=== PATIENT | female | born 1990 | race Two or more races ===

== ENCOUNTER → 2017-05-03 | Emergency (ER) | payer MEDICAID ==
[~2017-05-03] VITALS: Ht 157.5 cm; Wt 116.0 kg
[~2017-05-03] MED LIST: ketorolac trometh. 30mg/ml inj. IV ONE
[2017-05-03 15:24] LABS: BASOPHILS # (AUTO) 0.1 X10'3 (0-0.2); BASOPHILS % (AUTO) 0.9 % (0-1); EOSINOPHILS # (AUTO) 0.2 X10'3 (0-0.9); EOSINOPHILS % (AUTO) 1.7 % (0-6); HEMATOCRIT 38.8 % (35.0-45.0); HEMOGLOBIN 13.3 g/dl (12.0-16.0); LYMPHOCYTES # (AUTO) 3.7 X10'3 (1.1-4.8); LYMPHOCYTES % (AUTO) 31.6 % (21-51); MEAN CORPUSCULAR HEMOGLOBIN 27.6 PG (27.0-31.0); MEAN CORPUSCULAR HGB CONC 34.3 % (33.0-36.5); MEAN CORPUSCULAR VOLUME 80.4 FL (78-98); MEAN PLATELET VOLUME 8.5 FL (7.4-10.4); MONOCYTES # (AUTO) 0.7 X10'3 (0-0.9); MONOCYTES % (AUTO) 5.8 % (2-12); PLATELET COUNT 311 X10'3 (140-440); RED BLOOD COUNT 4.83 X10'6 (4.20-5.60); RED CELL DISTRIBUTION WIDTH 13.2 % (11.5-14.5); WHITE BLOOD COUNT 11.7 X10'3 (4.5-11.0)
[2017-05-03 15:33] LABS: PARTIAL THROMBOPLASTIN TIME 28 SECONDS (22-32)
[2017-05-03 15:39] LABS: ALANINE AMINOTRANSFERASE 26 U/L (12-78); ALBUMIN 3.6 G/DL (3.4-5.0); ALBUMIN/GLOBULIN RATIO 0.8 (1.1-1.5); ALKALINE PHOSPHATASE 81 IU/L (46-116); ANION GAP 9 (8-16); ASPARTATE AMINO TRANSFERASE 15 U/L (10-37); BILIRUBIN,TOTAL 0.9 MG/DL (0.1-1.0); BLOOD UREA NITROGEN 13 MG/DL (7-18); BUN/CREATININE RATIO 13.1 (6.6-38.0); CHLORIDE 105 MMOL/L (99-107); CREATININE 0.99 MG/DL (0.40-0.90); GLUCOSE 91 MG/DL (70-104); POTASSIUM 3.9 MMOL/L (3.5-5.1); SODIUM 140 MMOL/L (135-145); TOTAL CARBON DIOXIDE 25.6 MMOL/L (24-32); TOTAL PROTEIN 7.9 G/DL (6.4-8.2); eGFR 67 ML/MIN
[2017-05-03 16:51] LABS: D-DIMER 0.36 MG/L FEU (0-0.50)
[2017-05-03 17:19] VITALS: BP 128/65
== END | disposition home or self-care (01) ==
LOC: ER 15:04
DX: R07.9 Chest pain, unspecified (principal); E78.00 Pure hypercholesterolemia, unspecified; E03.9 Hypothyroidism, unspecified
CPT/HCPCS: 36415; 71045; 80053; 85025; 85379; 85610; 85730; 93005; 96374; 99285; J1885; 84484

== ENCOUNTER 2020-06-10 04:21 | Emergency (ER) | payer MEDICAID ==
[~2020-06-10] VITALS: Ht 157.5 cm; Wt 127.3 kg
[2020-06-10 04:58] LABS: BASOPHILS # (AUTO) 0.1 X10'3 (0-0.2); BASOPHILS % (AUTO) 0.8 % (0-1); EOSINOPHILS # (AUTO) 0.2 X10'3 (0-0.9); EOSINOPHILS % (AUTO) 1.7 % (0-6); HEMATOCRIT 36.7 % (35.0-45.0); HEMOGLOBIN 12.6 g/dl (12.0-16.0); LYMPHOCYTES % (AUTO) 39.3 % (21-51); MEAN CORPUSCULAR HEMOGLOBIN 28.2 PG (27.0-31.0); MEAN CORPUSCULAR HGB CONC 34.3 g/dL (33.0-36.5); MEAN CORPUSCULAR VOLUME 82.2 FL (78-98); MEAN PLATELET VOLUME 8.4 FL (7.4-10.4); MONOCYTES # (AUTO) 0.9 X10'3 (0-0.9); MONOCYTES % (AUTO) 7.5 % (2-12); NEUTROPHILS # (AUTO) 6.4 X10'3 (1.8-7.7); NEUTROPHILS % (AUTO) 50.7 % (42-75); PLATELET COUNT 337 X10'3 (140-440); RED BLOOD COUNT 4.46 X10'6 (4.20-5.60); RED CELL DISTRIBUTION WIDTH 13.3 % (11.5-14.5); WHITE BLOOD COUNT 12.7 X10'3 (4.5-11.0)
[2020-06-10 05:13] LABS: ALANINE AMINOTRANSFERASE 21 U/L (12-78); ALBUMIN 3.4 G/DL (3.4-5.0); ALBUMIN/GLOBULIN RATIO 0.8 (1.1-1.5); ALKALINE PHOSPHATASE 69 IU/L (46-116); ANION GAP 9 (8-16); ASPARTATE AMINO TRANSFERASE 16 U/L (10-37); BILIRUBIN,TOTAL 0.5 MG/DL (0.1-1.0); BLOOD UREA NITROGEN 17 MG/DL (7-18); BUN/CREATININE RATIO 18.7 (6.6-38.0); CALCIUM 8.7 MG/DL (8.5-10.1); CHLORIDE 104 MMOL/L (99-107); CREATININE 0.91 MG/DL (0.40-0.90); GLUCOSE 99 MG/DL (70-104); SODIUM 140 MMOL/L (135-145); TOTAL CARBON DIOXIDE 26.6 MMOL/L (24-32); TOTAL PROTEIN 7.5 G/DL (6.4-8.2); eGFR 73 ML/MIN
[2020-06-10] MEDS ORDERED: acetaminophen 325mg tablet PO ONE (07:45)
[2020-06-10] MEDS ORDERED: ketorolac trometh inj. 60 MG/2 ML VIAL IM ONE (07:45)
[2020-06-10] MEDS ORDERED: ketorolac trometh. 30mg/ml inj. IM ONE (07:50)
[2020-06-10 09:22] VITALS: BP 130/72
== END 2020-06-10 09:24 | disposition home or self-care (01) ==
LOC: ER 04:21
DX: R07.89 Other chest pain (principal); E78.00 Pure hypercholesterolemia, unspecified; E03.9 Hypothyroidism, unspecified; F41.9 Anxiety disorder, unspecified; F32.9 Major depressive disorder, single episode, unspecified; Z90.89 Acquired absence of other organs; Z72.89 Other problems related to lifestyle
CPT/HCPCS: 36415; 71045; 80053; 83880; 84484; 85025; 93005; 96372; 99285; J1885

== ENCOUNTER 2022-03-28 07:22 | Emergency (ER) | payer MEDICAID ==
[~2022-03-28] VITALS: Ht 157.5 cm; Wt 132.0 kg
--- NOTE | 2022-03-28 07:54 | NUR ---
Dr Bacon aware of patient's severe pain at this time. No new orders.
[2022-03-28] MEDS ORDERED: ketorolac tromethamine 15mg/ml inj. IV ONE (08:00)
[2022-03-28] MEDS ORDERED: normal saline 1000ML IV soln IVB ONE (08:00)
[2022-03-28 08:05] LABS: BASOPHILS # (AUTO) 0.1 X10'3 (0-0.2); BASOPHILS % (AUTO) 0.7 % (0-1); EOSINOPHILS # (AUTO) 0.2 X10'3 (0-0.9); EOSINOPHILS % (AUTO) 1.5 % (0-6); HEMATOCRIT 38.4 % (35.0-45.0); HEMOGLOBIN 12.9 g/dl (12.0-16.0); LYMPHOCYTES # (AUTO) 4.4 X10'3 (1.1-4.8); LYMPHOCYTES % (AUTO) 31.9 % (21-51); MEAN CORPUSCULAR HEMOGLOBIN 27.2 PG (27.0-31.0); MEAN CORPUSCULAR HGB CONC 33.5 g/dL (33.0-36.5); MEAN CORPUSCULAR VOLUME 81.1 FL (78-98); MEAN PLATELET VOLUME 8.7 FL (7.4-10.4); MONOCYTES % (AUTO) 6.9 % (2-12); NEUTROPHILS # (AUTO) 8.2 X10'3 (1.8-7.7); PLATELET COUNT 330 X10'3 (140-440); RED BLOOD COUNT 4.74 X10'6 (4.20-5.60); RED CELL DISTRIBUTION WIDTH 13.5 % (11.5-14.5); WHITE BLOOD COUNT 13.9 X10'3 (4.5-11.0)
[2022-03-28 08:21] LABS: ALANINE AMINOTRANSFERASE 24 U/L (12-78); ALBUMIN 3.9 G/DL (3.4-5.0); ALKALINE PHOSPHATASE 68 IU/L (46-116); AMYLASE 41 U/L (25-115); ANION GAP 13 (8-16); ASPARTATE AMINO TRANSFERASE 18 U/L (10-37); BILIRUBIN,TOTAL 0.8 MG/DL (0.1-1.0); BLOOD UREA NITROGEN 9 MG/DL (7-18); BUN/CREATININE RATIO 9.9 (6.6-38.0); CALCIUM 8.9 MG/DL (8.5-10.1); CHLORIDE 102 MMOL/L (99-107); CREATININE 0.91 MG/DL (0.40-0.90); GLUCOSE 95 MG/DL (70-104); HCG SERUM QL NEGATIVE; LIPASE < 50 U/L (73-393); POTASSIUM 3.6 MMOL/L (3.5-5.1); SODIUM 140 MMOL/L (135-145); TOTAL CARBON DIOXIDE 25.2 MMOL/L (24-32); TOTAL PROTEIN 7.9 G/DL (6.4-8.2); eGFR 72 ML/MIN
[2022-03-28] MEDS ORDERED: iohexol 300mg/ml 100ml inj. ONE (08:35)
[2022-03-28 09:28] LABS: CLARITY,URINE SLIGHTLY CLOUDY (Clear); COLOR,URINE YELLOW (Yellow); GLUCOSE, URINE NEGATIVE (Neg); KETONES,URINE NEGATIVE (Neg); LEUKOCYTE ESTERASE ,URINE NEGATIVE (Neg); NITRITES, URINE NEGATIVE (Neg); OCCULT BLOOD,URINE NEGATIVE (Neg); PROTEIN,URINE NEGATIVE (Neg); UROBILINOGEN,URINE 0.2 E.U/dL (0.2-1.0)
[2022-03-28 09:34] LABS: MUCUS STRANDS NONE SEEN /LPF (Neg); SQUAMOUS EPITHELIAL CELL,UR MANY /LPF (FEW); UA COLLECTION TYPE VOIDED
[2022-03-28 09:36] LABS: BACTERIA,URINE 1+ /HPF (Neg); RBC,URINE 0-2 /HPF (0-2); WBC,URINE 0-4 /HPF (0-4)
[2022-03-28] MEDS: morphine 2 MG/ML inj. syringe IV PRN ×2 (10:39→12:53)
[2022-03-28] MEDS ORDERED: HYDROcodone/acetaminophen 10/325mg tab PO ONE (12:50)
[2022-03-28 13:11] VITALS: BP 120/74
== END 2022-03-28 13:14 | disposition home or self-care (01) ==
LOC: ER 07:23
DX: K63.89 Other specified diseases of intestine (principal); D31.60 Benign neoplasm of unspecified site of unspecified orbit; E78.00 Pure hypercholesterolemia, unspecified; E03.9 Hypothyroidism, unspecified; F41.9 Anxiety disorder, unspecified; F32.9 Major depressive disorder, single episode, unspecified; Z90.49 Acquired absence of other specified parts of digestive tract; Z72.89 Other problems related to lifestyle; Z79.899 Other long term (current) drug therapy
CPT/HCPCS: 36415; 74177; 76856; 80053; 81001; 82150; 83690; 84703; 85025; 93976; 96361; 96374; 96375; 96376; 99285; J1885; J2270; J3490; J7030; Q9967

== ENCOUNTER 2022-05-27 23:57 | Emergency (ER) | payer MEDICAID ==
[~2022-05-27] VITALS: Ht 157.5 cm; Wt 141.4 kg
[2022-05-28] MEDS ORDERED: LORazepam 2 mg/ml vial IV ONE ×2 (00:10→07:45)
[2022-05-28] MEDS ORDERED: iohexol 350MG/ML 100ml bottle IV ONE (00:12)
[2022-05-28 00:41] LABS: ALANINE AMINOTRANSFERASE 22 U/L (12-78); ALBUMIN 3.6 G/DL (3.4-5.0); ALBUMIN/GLOBULIN RATIO 0.9 (1.1-1.5); ALKALINE PHOSPHATASE 67 IU/L (46-116); ANION GAP 10 (8-16); ASPARTATE AMINO TRANSFERASE 11 U/L (10-37); BILIRUBIN,TOTAL 0.4 MG/DL (0.1-1.0); BLOOD UREA NITROGEN 12 MG/DL (7-18); BUN/CREATININE RATIO 13.8 (10.0-20.0); CALCIUM 8.7 MG/DL (8.5-10.1); CHLORIDE 104 MMOL/L (99-107); CREATININE 0.87 MG/DL (0.40-0.90); ETHANOL 0.019 GM/DL (0.0-0.010); GLUCOSE 82 MG/DL (70-104); POTASSIUM 3.2 MMOL/L (3.5-5.1); SODIUM 140 MMOL/L (135-145); TOTAL CARBON DIOXIDE 25.8 MMOL/L (24-32); TOTAL PROTEIN 7.5 G/DL (6.4-8.2); eGFR 75 ML/MIN
[2022-05-28 00:52] LABS: BASOPHILS # (AUTO) 0.1 X10'3 (0-0.2); BASOPHILS % (AUTO) 0.5 % (0-1); EOSINOPHILS # (AUTO) 0.1 X10'3 (0-0.9); EOSINOPHILS % (AUTO) 0.9 % (0-6); HEMATOCRIT 37.3 % (35.0-45.0); HEMOGLOBIN 12.5 g/dl (12.0-16.0); LYMPHOCYTES # (AUTO) 4.1 X10'3 (1.1-4.8); LYMPHOCYTES % (AUTO) 31.7 % (21-51); MEAN CORPUSCULAR HEMOGLOBIN 27.2 PG (27.0-31.0); MEAN CORPUSCULAR HGB CONC 33.5 g/dL (33.0-36.5); MEAN PLATELET VOLUME 8.8 FL (7.4-10.4); MONOCYTES # (AUTO) 1.3 X10'3 (0-0.9); NEUTROPHILS # (AUTO) 7.4 X10'3 (1.8-7.7); NEUTROPHILS % (AUTO) 56.9 % (42-75); PLATELET COUNT 299 X10'3 (140-440); RED BLOOD COUNT 4.61 X10'6 (4.20-5.60); RED CELL DISTRIBUTION WIDTH 13.5 % (11.5-14.5)
--- NOTE | 2022-05-28 01:08 | NUR ---
CT negative per radiologist that called.
[2022-05-28 01:26] LABS: URINE AMPHETAMINE SCREEN NEGATIVE (Neg); URINE BARBITUATE SCREEN NEGATIVE (Neg); URINE BENZODIAZEPINES SCREEN NEGATIVE (Neg); URINE CANNABINOID SCREEN NEGATIVE (Neg); URINE COCAINE SCREEN NEGATIVE (Neg); URINE METHADONE SCREEN NEGATIVE (Neg); URINE OPIATE SCREEN NEGATIVE (Neg); URINE PHENCYCLIDINE SCREEN NEGATIVE (Neg)
[2022-05-28] MEDS ORDERED: normal saline 1000ML IV soln IVB ONE (02:15)
[2022-05-28 02:49] LABS: C-REACTIVE PROTEIN 0.81 MG/DL (0.0-0.5)
[2022-05-28] MEDS ORDERED: ketorolac trometh. 30mg/ml inj. IV ONE (02:50)
[2022-05-28] MEDS ORDERED: diphenhydrAMINE 50 mg/ml inj IV ONE (02:50)
[2022-05-28] MEDS ORDERED: meclizine 12.5mg tablet PO ONE (02:50)
[2022-05-28] MEDS ORDERED: diphenhydrAMINE 50 mg/ml inj IM ONE (07:05)
[2022-05-28] MEDS ORDERED: haloperidol decanoate***LONG-ACTING*** 100mg/ml **IM only** inj. IM ONE (07:05)
[2022-05-28] MEDS ORDERED: haloperidol lactate 5mg/ml inj IM ONE (07:20)
--- NOTE | 2022-05-28 07:39 | NUR ---
FAMILY AT BEDSIDE. PT DENIES NEEDS AT THIS TIME.
[2022-05-28] MEDS ORDERED: LORazepam 2 mg/ml vial ONE (07:45)
--- NOTE | 2022-05-28 07:52 | NUR ---
PT REPORTS SHE FEELS ANXIOUS AND RESTLESS - ALL VITALS WNL - PT GIVEN VERBAL COACHING FOR ANXIETY. MD AT BEDSIDE AND VERBAL ORDERS GIVEN FOR 1 MG ATIVAN. UPON RE-ENTERING THE ROOM TO ADMIN ATIVAN PT ALREADY DOING MUCH BETTER AND RESTING STILL ON GURNEY. MD FAMILY UPDATED ON PLAN OF CARE TO OBTAIN MRI AND PROCEED FROM THERE.
[2022-05-28 09:12] VITALS: BP 138/83
--- NOTE | 2022-05-28 09:12 | NUR ---
ASSUMED CARE FROM RN. PT RESTINF IN BED, ROD PULLER IN PLACE. AT BEDSIDE. INTRODUCED SELF AND ROLE. PT EDUCATED TO POC. PT IN AGREEMENT.
== END 2022-05-28 11:15 | disposition home or self-care (01) ==
LOC: ER 23:57
DX: R42 Dizziness and giddiness (principal); R51.9 Headache, unspecified; R11.10 Vomiting, unspecified; H53.143 Visual discomfort, bilateral; E80.0 Hereditary erythropoietic porphyria; E03.9 Hypothyroidism, unspecified; F31.9 Bipolar disorder, unspecified; Z90.49 Acquired absence of other specified parts of digestive tract
CPT/HCPCS: 36415; 70450; 70496; 70498; 80053; 80305; 80320; 85025; 85651; 86140; 96361; 96372; 96374; 96375; 96376; 99285; J1200; J1630; J1885; J2060; J3490; J7030; J8597; Q9967

== ENCOUNTER 2022-06-29 00:25 | Emergency (ER) | payer MEDICAID ==
[~2022-06-29] VITALS: Ht 152.4 cm; Wt 141.4 kg
[2022-06-29 00:30] VITALS: BP 160/106
[2022-06-29 01:09] LABS: BASOPHILS # (AUTO) 0.1 X10'3 (0-0.2); BASOPHILS % (AUTO) 0.7 % (0-1); EOSINOPHILS # (AUTO) 0.2 X10'3 (0-0.9); EOSINOPHILS % (AUTO) 1.7 % (0-6); HEMATOCRIT 35.1 % (35.0-45.0); HEMOGLOBIN 12.1 g/dl (12.0-16.0); LYMPHOCYTES # (AUTO) 3.6 X10'3 (1.1-4.8); LYMPHOCYTES % (AUTO) 29.9 % (21-51); MEAN CORPUSCULAR HEMOGLOBIN 27.4 PG (27.0-31.0); MEAN CORPUSCULAR HGB CONC 34.4 g/dL (33.0-36.5); MEAN CORPUSCULAR VOLUME 79.7 FL (78-98); MEAN PLATELET VOLUME 8.7 FL (7.4-10.4); MONOCYTES # (AUTO) 0.8 X10'3 (0-0.9); MONOCYTES % (AUTO) 6.4 % (2-12); NEUTROPHILS # (AUTO) 7.4 X10'3 (1.8-7.7); NEUTROPHILS % (AUTO) 61.3 % (42-75); PLATELET COUNT 291 X10'3 (140-440); RED BLOOD COUNT 4.41 X10'6 (4.20-5.60); RED CELL DISTRIBUTION WIDTH 13.4 % (11.5-14.5); WHITE BLOOD COUNT 12.1 X10'3 (4.5-11.0)
[2022-06-29 01:10] LABS: URINE HCG NEGATIVE (NEG)
[2022-06-29 01:22] LABS: CLARITY,URINE CLEAR (Clear); COLOR,URINE YELLOW (Yellow); GLUCOSE, URINE NEGATIVE (Neg); KETONES,URINE NEGATIVE (Neg); LEUKOCYTE ESTERASE ,URINE NEGATIVE (Neg); NITRITES, URINE NEGATIVE (Neg); OCCULT BLOOD,URINE NEGATIVE (Neg); PROTEIN,URINE NEGATIVE (Neg); UROBILINOGEN,URINE 0.2 E.U/dL (0.2-1.0)
[2022-06-29 01:23] LABS: UA COLLECTION TYPE CLN CATCH MIDSTREAM
[2022-06-29 01:25] LABS: ALANINE AMINOTRANSFERASE 19 U/L (12-78); ALBUMIN 3.6 G/DL (3.4-5.0); ALBUMIN/GLOBULIN RATIO 1.1 (1.1-1.5); ALKALINE PHOSPHATASE 77 IU/L (46-116); ANION GAP 8 (8-16); ASPARTATE AMINO TRANSFERASE 8 U/L (10-37); BILIRUBIN,TOTAL 0.4 MG/DL (0.1-1.0); BLOOD UREA NITROGEN 11 MG/DL (7-18); BUN/CREATININE RATIO 11.1 (10.0-20.0); CHLORIDE 105 MMOL/L (99-107); CREATININE 0.99 MG/DL (0.40-0.90); GLUCOSE 131 MG/DL (70-104); LIPASE 60 U/L (73-393); POTASSIUM 3.7 MMOL/L (3.5-5.1); SODIUM 139 MMOL/L (135-145); TOTAL CARBON DIOXIDE 25.6 MMOL/L (24-32); TOTAL PROTEIN 6.9 G/DL (6.4-8.2); eGFR 65 ML/MIN
[2022-06-29 01:32] LABS: CALCIUM 8.5 MG/DL (8.5-10.1)
[2022-06-30] MEDS ORDERED: HYDR-3965 PO (15:09)
== END 2022-06-29 01:37 | disposition left against medical advice (07) ==
LOC: ER 00:26
DX: R10.31 Right lower quadrant pain (principal); Z53.21 Procedure and treatment not carried out due to patient leaving prior to being seen by health care provider
CPT/HCPCS: 36415; 80053; 81003; 81025; 83690; 85025; 99281

== ENCOUNTER 2022-06-30 10:52 | Emergency (ER) | payer MEDICAID ==
[~2022-06-30] VITALS: Ht 152.4 cm; Wt 141.0 kg
[2022-06-30 11:49] LABS: CLARITY,URINE CLEAR (Clear); COLOR,URINE YELLOW (Yellow); GLUCOSE, URINE NEGATIVE (Neg); KETONES,URINE NEGATIVE (Neg); LEUKOCYTE ESTERASE ,URINE NEGATIVE (Neg); NITRITES, URINE NEGATIVE (Neg); OCCULT BLOOD,URINE NEGATIVE (Neg); PROTEIN,URINE NEGATIVE (Neg); UROBILINOGEN,URINE 0.2 E.U/dL (0.2-1.0)
[2022-06-30 11:50] LABS: UA COLLECTION TYPE CLN CATCH MIDSTREAM
[2022-06-30 11:56] LABS: URINE HCG NEGATIVE (NEG)
[2022-06-30 12:16] LABS: BASOPHILS % (AUTO) 0.4 % (0-1); EOSINOPHILS # (AUTO) 0.1 X10'3 (0-0.9); EOSINOPHILS % (AUTO) 1.4 % (0-6); HEMATOCRIT 36.8 % (35.0-45.0); HEMOGLOBIN 12.4 g/dl (12.0-16.0); LYMPHOCYTES # (AUTO) 2.5 X10'3 (1.1-4.8); LYMPHOCYTES % (AUTO) 26.8 % (21-51); MEAN CORPUSCULAR HEMOGLOBIN 27.3 PG (27.0-31.0); MEAN CORPUSCULAR HGB CONC 33.9 g/dL (33.0-36.5); MEAN CORPUSCULAR VOLUME 80.6 FL (78-98); MEAN PLATELET VOLUME 8.7 FL (7.4-10.4); MONOCYTES # (AUTO) 0.6 X10'3 (0-0.9); MONOCYTES % (AUTO) 6.2 % (2-12); NEUTROPHILS % (AUTO) 65.2 % (42-75); PLATELET COUNT 288 X10'3 (140-440); RED BLOOD COUNT 4.56 X10'6 (4.20-5.60); RED CELL DISTRIBUTION WIDTH 13.6 % (11.5-14.5); WHITE BLOOD COUNT 9.3 X10'3 (4.5-11.0)
[2022-06-30 12:40] LABS: ALANINE AMINOTRANSFERASE 20 U/L (12-78); ALBUMIN 3.4 G/DL (3.4-5.0); ALKALINE PHOSPHATASE 53 IU/L (46-116); ANION GAP 4 (8-16); ASPARTATE AMINO TRANSFERASE 11 U/L (10-37); BILIRUBIN,TOTAL 0.7 MG/DL (0.1-1.0); BLOOD UREA NITROGEN 10 MG/DL (7-18); BUN/CREATININE RATIO 11.1 (10.0-20.0); CALCIUM 8.6 MG/DL (8.5-10.1); CHLORIDE 105 MMOL/L (99-107); GLUCOSE 93 MG/DL (70-104); LIPASE < 50 U/L (73-393); POTASSIUM 4.1 MMOL/L (3.5-5.1); SODIUM 136 MMOL/L (135-145); TOTAL CARBON DIOXIDE 27.5 MMOL/L (24-32); TOTAL PROTEIN 6.7 G/DL (6.4-8.2); eGFR 73 ML/MIN
[2022-06-30] MEDS ORDERED: ondansetron/PF 4mg/2ml inj IV ONE (13:15)
[2022-06-30] MEDS ORDERED: normal saline 1000ml 1,000 ML IV ONE (13:15)
[2022-06-30] MEDS ORDERED: morphine 4 MG/ML inj SYRINge IV ONE (13:15)
[2022-06-30] MEDS ORDERED: HYDR-3965 PO (15:09)
[2022-06-30 15:21] VITALS: BP 142/91
== END 2022-06-30 15:21 | disposition home or self-care (01) ==
LOC: ER 10:52
DX: N83.201 Unspecified ovarian cyst, right side (principal); E78.00 Pure hypercholesterolemia, unspecified; E03.9 Hypothyroidism, unspecified; Z90.49 Acquired absence of other specified parts of digestive tract; Z72.89 Other problems related to lifestyle
CPT/HCPCS: 36415; 74176; 76830; 76856; 80053; 81003; 81025; 83690; 85025; 93976; 96361; 96374; 96375; 99285; J2270; J2405; J7030

== ENCOUNTER 2022-07-16 14:25 | Emergency (ER) | payer MEDICAID ==
[~2022-07-16] VITALS: Ht 152.4 cm; Wt 137.3 kg
[~2022-07-16 14:25] MED LIST changes: +HYDR-3965 PO; -ketorolac trometh. 30mg/ml inj. IV ONE
[2022-07-16 14:34] VITALS: BP 163/82
[2022-07-16] MEDS ORDERED: normal saline 1000ml 1,000 ML IV ONE (14:40)
[2022-07-16] MEDS ORDERED: morphine 4 MG/ML inj SYRINge IV ONE (14:40)
[2022-07-16] MEDS ORDERED: ondansetron/PF 4mg/2ml inj IV ONE (14:40)
[2022-07-16] MEDS ORDERED: ketorolac trometh. 30mg/ml inj. IV ONE (14:40)
[2022-07-16 15:00] LABS: BASOPHILS # (AUTO) 0.1 X10'3 (0-0.2); BASOPHILS % (AUTO) 0.9 % (0-1); EOSINOPHILS # (AUTO) 0.1 X10'3 (0-0.9); EOSINOPHILS % (AUTO) 1.3 % (0-6); HEMATOCRIT 40.8 % (35.0-45.0); HEMOGLOBIN 13.5 g/dl (12.0-16.0); LYMPHOCYTES # (AUTO) 3.1 X10'3 (1.1-4.8); LYMPHOCYTES % (AUTO) 36.1 % (21-51); MEAN CORPUSCULAR HEMOGLOBIN 26.8 PG (27.0-31.0); MEAN CORPUSCULAR HGB CONC 33.2 g/dL (33.0-36.5); MEAN CORPUSCULAR VOLUME 80.8 FL (78-98); MEAN PLATELET VOLUME 8.4 FL (7.4-10.4); MONOCYTES # (AUTO) 0.5 X10'3 (0-0.9); MONOCYTES % (AUTO) 5.5 % (2-12); NEUTROPHILS # (AUTO) 4.8 X10'3 (1.8-7.7); NEUTROPHILS % (AUTO) 56.2 % (42-75); PLATELET COUNT 344 X10'3 (140-440); RED BLOOD COUNT 5.05 X10'6 (4.20-5.60); RED CELL DISTRIBUTION WIDTH 13.3 % (11.5-14.5); WHITE BLOOD COUNT 8.5 X10'3 (4.5-11.0)
[2022-07-16 15:14] LABS: ALANINE AMINOTRANSFERASE 23 U/L (12-78); ALBUMIN/GLOBULIN RATIO 1.1 (1.1-1.5); ALKALINE PHOSPHATASE 69 IU/L (46-116); ANION GAP 10 (8-16); ASPARTATE AMINO TRANSFERASE 14 U/L (10-37); BLOOD UREA NITROGEN 9 MG/DL (7-18); BUN/CREATININE RATIO 10.8 (10.0-20.0); CALCIUM 9.2 MG/DL (8.5-10.1); CHLORIDE 104 MMOL/L (99-107); CREATININE 0.83 MG/DL (0.40-0.90); GLUCOSE 92 MG/DL (70-104); LIPASE < 50 U/L (73-393); SODIUM 138 MMOL/L (135-145); TOTAL CARBON DIOXIDE 24.4 MMOL/L (24-32); TOTAL PROTEIN 7.8 G/DL (6.4-8.2); eGFR 80 ML/MIN
[2022-07-16] MEDS ORDERED: OXYC-150 PO (15:38)
[2022-07-16] MEDS ORDERED: oxyCODONE/APAP 10/325mg tablet PO ONE (15:40)
--- NOTE | 2022-07-16 16:12 | NUR ---
PT STATES PAIN NOW IS A 3. TOLERABLE REFUSED PERCOCET
[2022-07-16 16:38] LABS: URINE HCG NEGATIVE (NEG)
[2022-07-16 16:42] LABS: CLARITY,URINE SLIGHTLY CLOUDY (Clear); COLOR,URINE YELLOW (Yellow); GLUCOSE, URINE NEGATIVE (Neg); KETONES,URINE NEGATIVE (Neg); LEUKOCYTE ESTERASE ,URINE NEGATIVE (Neg); NITRITES, URINE NEGATIVE (Neg); OCCULT BLOOD,URINE NEGATIVE (Neg); PH,URINE 5.5 (4.8-8.0); PROTEIN,URINE NEGATIVE (Neg); UROBILINOGEN,URINE 0.2 E.U/dL (0.2-1.0)
[2022-07-16 16:45] LABS: UA COLLECTION TYPE CLN CATCH MIDSTREAM
[2022-07-16 16:55] LABS: BACTERIA,URINE 1+ /HPF (Neg); MUCUS STRANDS FEW /LPF (Neg); RBC,URINE NONE SEEN /HPF (0-2); SQUAMOUS EPITHELIAL CELL,UR MANY /LPF (FEW); WBC,URINE 0-4 /HPF (0-4)
== END 2022-07-16 16:23 | disposition home or self-care (01) ==
LOC: ER 14:26
DX: D27.9 Benign neoplasm of unspecified ovary (principal); E78.00 Pure hypercholesterolemia, unspecified; E03.9 Hypothyroidism, unspecified; F31.9 Bipolar disorder, unspecified; Z90.49 Acquired absence of other specified parts of digestive tract; Z79.899 Other long term (current) drug therapy
CPT/HCPCS: 36415; 76856; 80053; 81001; 81025; 83690; 85025; 93976; 96374; 96375; 99285; J1885; J2270; J2405; J7030

== ENCOUNTER 2022-08-17 15:46 | Emergency (ER) | payer MEDICAID ==
[~2022-08-17] VITALS: Ht 152.4 cm; Wt 136.8 kg
[~2022-08-17 15:46] MED LIST changes: -HYDR-3965 PO; +OXYC-150 PO
[2022-08-17 15:57] VITALS: BP 154/79
[2022-08-17] MEDS ORDERED: cephalexin 250mg capsule PO ONE (17:05)
[2022-08-17] MEDS ORDERED: bacitracin 15gm ointment TP ONE (17:05)
[2022-08-17] MEDS ORDERED: CEPH-585 PO (17:36)
== END 2022-08-17 18:04 | disposition home or self-care (01) ==
LOC: ER 15:47
DX: T81.49XA Infection following a procedure, other surgical site, initial encounter (principal); E78.00 Pure hypercholesterolemia, unspecified; E03.9 Hypothyroidism, unspecified; Z98.890 Other specified postprocedural states
CPT/HCPCS: 99283; J7030

== ENCOUNTER 2022-09-02 22:46 | Emergency (ER) | payer MEDICAID ==
[~2022-09-02] VITALS: Ht 152.4 cm; Wt 117.4 kg
[~2022-09-02 22:46] MED LIST changes: +CEPH-585 PO
[2022-09-02 23:02] VITALS: BP 154/108; PULSE 101; RESP 20; O2SAT 97
[2022-09-02] MEDS ORDERED: HYDROcodone/acetaminophen 5mg/325mg tablet PO ONE (23:55)
[2022-09-03] MEDS ORDERED: HYDR-3965 PO (00:01)
[2022-09-03] MEDS ORDERED: CEPH-585 PO (00:01)
[2022-09-03 01:52] VITALS: TEMP 99.1
== END 2022-09-03 01:56 | disposition home or self-care (01) ==
LOC: ER 22:47
DX: T81.31XA Disruption of external operation (surgical) wound, not elsewhere classified, initial encounter (principal); E78.00 Pure hypercholesterolemia, unspecified; F41.9 Anxiety disorder, unspecified; E03.9 Hypothyroidism, unspecified; Z90.49 Acquired absence of other specified parts of digestive tract; Z79.899 Other long term (current) drug therapy
CPT/HCPCS: 99283; A6222